=== PATIENT | male | born 1990 ===

== ENCOUNTER 2023-07-14 16:27 | Inpatient (IN) | payer OTHER ==
[~2023-07-14] VITALS: Ht 180.3 cm; Wt 103.0 kg
[2023-07-14 20:31] LABS: BASOPHILS % (AUTO) 0.6 % (0.0-2.0); EOSINOPHILS % (AUTO) 0.8 % (1.0-6.0); HEMOGLOBIN 15.1 g/dL (13.5-17.5); LYMPHOCYTES # (AUTO) 1.8 K/uL (1.0-4.8); LYMPHOCYTES % (AUTO) 17.3 % (22.0-44.0); MEAN CORPUSCULAR HEMOGLOBIN 28.6 pg (26.0-34.0); MEAN CORPUSCULAR HGB CONC 33.6 G/dL (31.0-37.0); MEAN CORPUSCULAR VOLUME 85 fL (80-100); MONOCYTES # (AUTO) 0.6 K/uL (0.1-1.0); MONOCYTES % (AUTO) 6.1 % (2.0-9.0); NEUTROPHILS # (AUTO) 7.8 K/uL (1.8-7.7); NEUTROPHILS % (AUTO) 75.2 % (40.0-70.0); PLATELET COUNT (AUTO) 202 K/uL (150-450); RED BLOOD CELL COUNT(AUTO) 5.28 MIL/uL (4.50-5.90); RED CELL DISTRIBUTION WIDTH 13.1 % (11.5-14.5); WHITE BLOOD COUNT (AUTO) 10.4 K/uL (4.5-11.0)
[2023-07-14] MEDS ORDERED: SODIUM CHLORIDE 0.9% 1,000 ML IV ONE ×3 (20:45→22:00)
[2023-07-14] MEDS ORDERED: HYDROmorphone HCL 2 MG/ML SYRINGE IVP ONE (20:45)
[2023-07-14] MEDS ORDERED: ONDANSETRON HCL 4 MG/2 ML VIAL IVP ONE (20:45)
[2023-07-14 20:46] LABS: ANION GAP 6 mmol/L (8-16); CALCIUM, TOTAL 9.1 mg/dL (8.8-10.5); CARBON DIOXIDE 33 mmol/L (22-29); CHLORIDE 102 mmol/L (98-107); CREATININE 0.76 mg/dL (0.60-1.30); GLOMERULAR FILTR. RATE CALC > 60 mL/min (>60); GLUCOSE,RANDOM 89 mg/dL (70-110); SODIUM SERUM 141 mmol/L (136-145); UREA NITROGEN, BLOOD 15 mg/dL (7-18)
[2023-07-14 20:51] LABS: ALANINE AMINOTRANSFERASE 19 U/L (12-78); ALKALINE PHOSPHATASE 68 U/L (46-116); ASPARTATE AMINOTRANSFERASE 16 U/L (15-37); BILIRUBIN,TOTAL 0.6 mg/dL (0.1-1.0); LIPASE 26 U/L (16-77); TOTAL PROTEIN, SERUM 7.1 g/dL (6.4-8.2)
[2023-07-14] MEDS ORDERED: ACETAMINOPHEN 325 MG TABLET PO PRN (22:00)
[2023-07-14] MEDS ORDERED: MAGNESIUM HYDROXIDE SUSPENSION 30 ML UDCUP PO PRN (22:00)
[2023-07-14] MEDS ORDERED: ONDANSETRON HCL 4 MG/2 ML VIAL IVP PRN (22:00)
[2023-07-15] MEDS: MORPHINE SULFATE 2 MG/ML SYRINGE IVP PRN ×3 (02:00→08:36)
[2023-07-15 02:55] VITALS: BP 131/78; PULSE 63; RESP 19; TEMP 98.2
[2023-07-15 05:23] VITALS: BP 121/68; PULSE 61; RESP 17; TEMP 97.6
[2023-07-15] MEDS: FAMOTIDINE 20 MG TABLET PO SCH ×2 (08:35→08:39)
[2023-07-15] MEDS: DOCUSATE SODIUM 100 MG CAPSULE PO SCH ×3 (08:35→20:25)
[2023-07-15 09:24] VITALS: BP 126/73; PULSE 50; RESP 18; TEMP 98.1
[2023-07-15] MEDS ORDERED: BUPIVACAINE HCL/PF 0.25% 30 ML VIAL ONE (09:56)
[2023-07-15] MEDS ORDERED: ONDANSETRON HCL 4 MG/2 ML VIAL IVP ONE (12:00)
[2023-07-15] MEDS ORDERED: ALBUTEROL SULFATE HFA 90 MCG/PUFF 8 GM INHALER IH ONE (12:00)
[2023-07-15] MEDS ORDERED: DEXAMETHASONE SOD PHOS 4 MG/ML VIAL IVP ONE (12:00)
[2023-07-15] MEDS ORDERED: FentaNYL CITRATE PF 100 MCG/2 ML VIAL IVP ONE ×2 (12:00)
[2023-07-15] MEDS ORDERED: ROCURONIUM BROMIDE 10 MG/ML 5 ML VIAL IVP ONE (12:00)
[2023-07-15] MEDS ORDERED: MIDAZOLAM HCL 2 MG/2 ML VIAL IVP ONE ×2 (12:00)
[2023-07-15] MEDS ORDERED: KETOROLAC TROMETHAMINE 60 MG/2 ML VIAL IM ONE (12:00)
[2023-07-15] MEDS ORDERED: CALCIUM CHLORIDE 100 MG/ML 10 ML SYRINGE IVP ONE (12:00)
[2023-07-15] MEDS ORDERED: PROPOFOL 1% 20 ML VIAL IVP ONE (12:00)
[2023-07-15] MEDS ORDERED: METOCLOPRAMIDE HCL 5 MG/ML 2 ML VIAL IVP ONE (12:00)
[2023-07-15] MEDS ORDERED: SUGAMMADEX SODIUM 200 MG/2 ML VIAL IVP ONE (12:00)
[2023-07-15] MEDS ORDERED: BUPIVACAINE 0.25%/EPI 1:200,000/PF 30 ML VIAL PERC ONE ×2 (13:00→13:02)
[2023-07-15] MEDS ORDERED: RINGERS SOLUTION,LACTATED 1,000 ML IV ONE (13:44)
[2023-07-15 16:00] VITALS: BP 161/92; PULSE 84; RESP 18; TEMP 98.1
[2023-07-15] MEDS: IBUPROFEN 400 MG TABLET PO SCH ×3 (16:10→20:26)
[2023-07-15] MEDS: HYDROCODONE/ACETAMINOPHEN 5-325 MG TABLET PO PRN (20:31)
[2023-07-15 21:12] VITALS: BP 124/92; PULSE 104; RESP 18; TEMP 98.2
[2023-07-15 23:45] VITALS: BP 120/70; PULSE 96; RESP 1; TEMP 98.1
[2023-07-16 04:37] VITALS: BP 121/75; PULSE 81; RESP 18; TEMP 97.7
[2023-07-16] MEDS: MORPHINE SULFATE 2 MG/ML SYRINGE IVP PRN ×2 (04:54→20:03)
[2023-07-16 06:55] LABS: BASOPHILS % (AUTO) 0.1 % (0.0-2.0); EOSINOPHILS % (AUTO) 0 % (1.0-6.0); HEMOGLOBIN 14.5 g/dL (13.5-17.5); LYMPHOCYTES # (AUTO) 1.2 K/uL (1.0-4.8); LYMPHOCYTES % (AUTO) 7.4 % (22.0-44.0); MEAN CORPUSCULAR HEMOGLOBIN 28.7 pg (26.0-34.0); MEAN CORPUSCULAR HGB CONC 33.6 G/dL (31.0-37.0); MEAN CORPUSCULAR VOLUME 86 fL (80-100); MONOCYTES # (AUTO) 1.4 K/uL (0.1-1.0); MONOCYTES % (AUTO) 8.1 % (2.0-9.0); NEUTROPHILS # (AUTO) 14.3 K/uL (1.8-7.7); NEUTROPHILS % (AUTO) 84.4 % (40.0-70.0); PLATELET COUNT (AUTO) 228 K/uL (150-450); RED BLOOD CELL COUNT(AUTO) 5.03 MIL/uL (4.50-5.90); RED CELL DISTRIBUTION WIDTH 12.9 % (11.5-14.5); WHITE BLOOD COUNT (AUTO) 16.9 K/uL (4.5-11.0)
[2023-07-16 07:09] LABS: ANION GAP 8 mmol/L (8-16); CALCIUM, TOTAL 8.8 mg/dL (8.8-10.5); CARBON DIOXIDE 30 mmol/L (22-29); CHLORIDE 103 mmol/L (98-107); GLOMERULAR FILTR. RATE CALC > 60 mL/min (>60); GLUCOSE,RANDOM 105 mg/dL (70-110); POTASSIUM 4.3 mmol/L (3.5-5.1); SODIUM SERUM 141 mmol/L (136-145); UREA NITROGEN, BLOOD 16 mg/dL (7-18)
[2023-07-16 08:47] VITALS: BP 119/67; PULSE 68; RESP 19; TEMP 98.1
[2023-07-16] MEDS: DOCUSATE SODIUM 100 MG CAPSULE PO SCH ×2 (09:01→20:03)
[2023-07-16] MEDS: HYDROCODONE/ACETAMINOPHEN 5-325 MG TABLET PO PRN ×2 (09:01→16:00)
[2023-07-16] MEDS: OXYGEN THERAPY IH SCH ×2 (09:02→09:03)
[2023-07-16] MEDS: IBUPROFEN 400 MG TABLET PO SCH ×3 (09:02→20:03)
[2023-07-16] MEDS: FAMOTIDINE 20 MG TABLET PO SCH (09:02)
[2023-07-16 11:36] VITALS: BP_SYST 124; BP_SYST 69; BP_DIAS 124; BP_DIAS 69; PULSE 69; RESP 19; TEMP 98.1
[2023-07-16] MEDS: HYDROmorphone HCL 2 MG/ML SYRINGE IVP PRN (14:07)
[2023-07-16 16:07] VITALS: BP 104/68; PULSE 69; RESP 19; TEMP 98.7
[2023-07-16 20:00] VITALS: BP 144/74; PULSE 74; RESP 18; TEMP 98.3
[2023-07-17] MEDS: HYDROmorphone HCL 2 MG/ML SYRINGE IVP PRN ×2 (00:05→06:01)
[2023-07-17 00:10] VITALS: BP 115/70; PULSE 53; RESP 18; TEMP 97.8
[2023-07-17] MEDS: MORPHINE SULFATE 2 MG/ML SYRINGE IVP PRN ×2 (03:35→08:29)
[2023-07-17 05:35] VITALS: BP 122/73; PULSE 54; RESP 18; TEMP 97.7
[2023-07-17 07:53] VITALS: BP 117/64; PULSE 70; RESP 18; TEMP 98.5
[2023-07-17] MEDS: DOCUSATE SODIUM 100 MG CAPSULE PO SCH (08:26)
[2023-07-17] MEDS: FAMOTIDINE 20 MG TABLET PO SCH (08:27)
[2023-07-17] MEDS: IBUPROFEN 400 MG TABLET PO SCH (08:27)
[2023-07-17 11:20] VITALS: BP 121/91; PULSE 64; RESP 19; TEMP 98.4
== END 2023-07-17 15:05 | DRG 352 ==
LOC: EMS 16:27 → 5S 07-15 03:47
PROVIDERS: ADMIT Internal Medicine; ATTEND Internal Medicine
PROC: 0YU50JZ Supplement Right Inguinal Region with Synthetic Substitute, Open Approach (ICD-10-PCS; principal; 2023-07-15 14:05)
DX: K40.30 Unilateral inguinal hernia, with obstruction, without gangrene, not specified as recurrent (principal); D17.6 Benign lipomatous neoplasm of spermatic cord; S30.22XA Contusion of scrotum and testes, initial encounter; X58.XXXA Exposure to other specified factors, initial encounter; Y93.89 Activity, other specified; Y92.89 Other specified places as the place of occurrence of the external cause; Y99.8 Other external cause status
CPT/HCPCS: 80048; 80053; 83690; 85025; 88302; 88304; 99285; J1100; J1170; J1885; J2250; J2270; J2405; J2704; J2765; J3010; J3490; J3535; J7030; J7120; Q9967